=== PATIENT | female | born 1990 | race Caucasian/White ===

== ENCOUNTER 2018-01-24 23:27 | Emergency (ER) | payer BC ==
--- NOTE | 2018-01-24 23:33 | NUR ---
Called for triage,no answer.
--- NOTE | 2018-01-24 23:39 | NUR ---
2nd call for triage, no answer.
--- NOTE | 2018-01-24 23:56 | NUR ---
3RD CALL FOR TRIAGE, NO ANSWER. LWBT.
== END 2018-01-25 00:09 | disposition left against medical advice (07) ==
LOC: ER 23:30
DX: Z53.21 Procedure and treatment not carried out due to patient leaving prior to being seen by health care provider (principal)